=== PATIENT | male | born 1970 | race Caucasian/White ===

== ENCOUNTER → 2019-08-15 16:30 | Outpatient (CLI) | payer MEDICAID, SELFPAY | DX: Z01.812 Encounter for preprocedural laboratory examination (principal); Z03.818 Encounter for observation for suspected exposure to other biological agents ruled out | CPT/HCPCS: 87635; U0004 ==

== ENCOUNTER → 2019-08-30 | Outpatient (CLI) | payer MEDICAID, SELFPAY | END | disposition home or self-care (01) | DX: Z11.59 Encounter for screening for other viral diseases (principal) | CPT/HCPCS: 87635; U0002 ==